=== PATIENT | female | born 1985 | race Caucasian/White ===

== ENCOUNTER 2019-02-17 01:27 | Emergency (ER) | payer OTHER ==
[~2019-02-17] VITALS: Ht 160 cm; Wt 56.7 kg
[2019-02-17] MEDS ORDERED: ZYNCOF 20-400120 ML PO (03:22)
[2019-02-17] MEDS ORDERED: DOLOGESIC 500-1 EACH PO (03:22)
== END 2019-02-17 03:31 ==
LOC: ER 01:27
DX: B34.9 Viral infection, unspecified (principal); R50.9 Fever, unspecified